=== PATIENT | female | born 1960 | race African-American/Black ===

== ENCOUNTER 2017-02-13 19:40 | Emergency (ER) | payer MEDICARE, MEDICAID ==
[~2017-02-13] VITALS: Ht 170.2 cm; Wt 121.0 kg
[~2017-02-13 19:40] MED LIST: ALPR0.2582 PO; ASPI-1035 PO; AZAT50TA18 PO; CARI350T PO; FOLI-43 PO; FURO-152 PO; HYDR-519 PO; LISI-604 PO; P20 PO; VERA240C2 PO
[2017-02-13] MEDS ORDERED: KETOROLAC 30MG/ML VIAL IV ONE (20:45)
[2017-02-13] MEDS ORDERED: METHYLPREDNISOLONE SOD SUCC 125 MG/2 ML VIAL IV ONE (20:45)
[2017-02-13] MEDS ORDERED: ACETAMINOPHEN WITH CODEINE 300/30MG TABLET PO ONE (20:45)
[2017-02-13 22:30] VITALS: BP 184/88
[2017-02-13] MEDS ORDERED: MORPHINE SULFATE 4 MG/ML CPJ (NOT FOR IM USE) IV ONE (22:30)
== END 2017-02-13 23:44 | disposition home or self-care (01) ==
LOC: ER 20:48
DX: M32.9 Systemic lupus erythematosus, unspecified (principal); M79.7 Fibromyalgia; I10 Essential (primary) hypertension; Z88.0 Allergy status to penicillin; Z79.899 Other long term (current) drug therapy; Z90.49 Acquired absence of other specified parts of digestive tract; Z90.710 Acquired absence of both cervix and uterus; Z79.82 Long term (current) use of aspirin
CPT/HCPCS: 36415; 84484; 93005; 96374; 96375; 99284; J1885; J2270; J2930

== ENCOUNTER 2017-05-10 16:10 | Emergency (ER) | payer MEDICARE, MEDICAID ==
[~2017-05-10] VITALS: Ht 162.6 cm; Wt 137.0 kg
[~2017-05-10 16:10] MED LIST changes: +ALPR0.25 PO; -ALPR0.2582 PO; -ASPI-1035 PO; +ASPI-1159 PO
[2017-05-10] MEDS ORDERED: IBUPROFEN 600MG TABLET PO ONE (20:00)
[2017-05-10 20:58] VITALS: BP 144/75
== END 2017-05-10 21:38 | disposition home or self-care (01) ==
LOC: ER 20:42
DX: S80.02XA Contusion of left knee, initial encounter (principal); W18.39XA Other fall on same level, initial encounter; Y93.89 Activity, other specified; Y92.89 Other specified places as the place of occurrence of the external cause; I10 Essential (primary) hypertension; Z79.82 Long term (current) use of aspirin; M32.9 Systemic lupus erythematosus, unspecified; M79.7 Fibromyalgia; Z88.0 Allergy status to penicillin; Z90.49 Acquired absence of other specified parts of digestive tract; Z90.710 Acquired absence of both cervix and uterus; M17.12 Unilateral primary osteoarthritis, left knee
CPT/HCPCS: 73562; 99284

== ENCOUNTER 2017-06-21 14:11 | Inpatient (IN) | payer MEDICARE, MEDICAID ==
[~2017-06-21] VITALS: Ht 170.2 cm; Wt 120.2 kg
[2017-06-21] MEDS ORDERED: ASPIRIN 81MG TABLET PO STA (14:27)
[2017-06-21] MEDS ORDERED: KETOROLAC 30MG/ML VIAL IV ONE (15:00)
[2017-06-21 15:02] LABS: CHLORIDE 108 mEq/L (98-107); HEMATOCRIT. 32.8 % (36.0-48.0); HEMOGLOBIN. 10.6 g/dL (12.0-16.0); MEAN CORPUSCULAR HEMOGLOBIN 24.8 pg (28.0-32.0); MEAN CORPUSCULAR VOLUME 76.4 fL (81.0-99.0); MEAN PLATELET VOLUME 9.2 fl (7.4-10.4); PLATELET 171 x1000/uL (130-400); RED BLOOD CELL COUNT 4.29 mill/uL (4.2-5.4); RED CELL DISTRIBUTION WIDTH 15.5 % (11.6-14.6)
[2017-06-21 15:04] LABS: PARTIAL THROMBOPLASTIN TIME 24.5 sec (23.4-31.0); PROTHROMBIN TIME 10.3 sec (9.4-11.6)
[2017-06-21 15:07] LABS: CARBON DIOXIDE 26 mEq/L (21-32)
[2017-06-21] MEDS ORDERED: POTASSIUM CHLORIDE 20MEQ TABLET SR PO NR (16:30)
[2017-06-21] MEDS ORDERED: IPRATROPIUM/ALBUTEROL 0.5-3(2.5)MG/3ML NEB HHN PRN (16:45)
[2017-06-21] MEDS ORDERED: FUROSEMIDE 40MG/4ML VIAL IVP NR (16:45)
[2017-06-21 17:26] LABS: ATYPICAL LYMPHOCYTES 3; PLATELET ESTIMATE NORMAL
[2017-06-21] MEDS ORDERED: MORPHINE SULFATE 2 MG/ML CPJ (NOT FOR IM USE) IV ONE (17:45)
[2017-06-21] MEDS ORDERED: ONDANSETRON HCL 4MG/2ML VIAL IV ONE (17:45)
[2017-06-21] MEDS ORDERED: IPRATROPIUM/ALBUTEROL 0.5-3(2.5)MG/3ML NEB INH PRN (20:45)
[2017-06-21] MEDS ORDERED: ONDANSETRON HCL 4MG/2ML VIAL IV PRN (20:45)
[2017-06-21] MEDS ORDERED: ACETAMINOPHEN 325MG TABLET PO PRN (20:45)
[2017-06-21] MEDS ORDERED: DOCUSATE SODIUM 100MG CAPSULE PO PRN (20:45)
[2017-06-21 21:00] VITALS: BP 152/120
[2017-06-21] MEDS: AMLODIPINE 2.5MG TABLET PO SCH (21:17)
[2017-06-21] MEDS: LISINOPRIL 10MG TABLET PO SCH (21:18)
[2017-06-21] MEDS: METHYLPREDNISOLONE SOD SUCC 125 MG/2 ML VIAL IV SCH (21:18)
[2017-06-21] MEDS ORDERED: POTASSIUM CHLORIDE 20MEQ/PACKET PO NR (22:30)
[2017-06-21] MEDS: ALPRAZOLAM 0.5 MG TABLET PO PRN (22:51)
[2017-06-21] MEDS: HYDROCODONE/ACETAMINOPHEN 5/325MG TABLET PO PRN (22:51)
[2017-06-21] MEDS: CLONIDINE 0.1MG TABLET PO SCH (22:52)
[2017-06-21] MEDS: DILTIAZEM HCL 90MG TABLET PO SCH (22:52)
[2017-06-22] VITALS (7 sets, daily range): BP systolic 106–140; BP diastolic 41–90
[2017-06-22] MEDS: IPRATROPIUM/ALBUTEROL 0.5-3(2.5)MG/3ML NEB HHN SCH ×4 (00:29→21:11)
[2017-06-22] MEDS: MORPHINE SULFATE 2 MG/ML CPJ (NOT FOR IM USE) IV PRN ×4 (03:06→19:45)
[2017-06-22] MEDS: DILTIAZEM HCL 90MG TABLET PO SCH ×3 (06:26→21:58)
[2017-06-22] MEDS: CLONIDINE 0.1MG TABLET PO SCH ×3 (06:26→22:03)
[2017-06-22] MEDS: METHYLPREDNISOLONE SOD SUCC 125 MG/2 ML VIAL IV SCH ×3 (06:27→20:46)
[2017-06-22 07:35] LABS: BASOPHILS % 1.2 % (0.0-2.0); HEMATOCRIT. 33.5 % (36.0-48.0); HEMOGLOBIN. 10.7 g/dL (12.0-16.0); MEAN CORPUSCULAR HEMOGLOBIN 24.8 pg (28.0-32.0); MEAN PLATELET VOLUME 10.8 fl (7.4-10.4); MONOCYTES % 1.7 % (2.0-8.0); NEUTROPHILS % 69.1 % (40.0-76.0); PLATELET 174 x1000/uL (130-400); RED BLOOD CELL COUNT 4.29 mill/uL (4.2-5.4); RED CELL DISTRIBUTION WIDTH 15.1 % (11.6-14.6)
[2017-06-22 08:02] LABS: CARBON DIOXIDE 27 mEq/L (21-32); CHLORIDE 108 mEq/L (98-107); CREATINE KINASE 55 IU/L (26-192); TROPONIN I 0.09 ng/mL (0.00-0.04)
[2017-06-22] MEDS: DOCUSATE SODIUM 100MG CAPSULE PO SCH (09:00)
[2017-06-22] MEDS: AMLODIPINE 2.5MG TABLET PO SCH ×2 (09:00→20:46)
[2017-06-22] MEDS: LISINOPRIL 10MG TABLET PO SCH ×2 (09:00→20:46)
[2017-06-22] MEDS: FUROSEMIDE 20MG TABLET PO SCH (09:43)
[2017-06-22] MEDS: OMEPRAZOLE 20MG CAPSULE EXTENDED RELEASE PO SCH (09:43)
[2017-06-22] MEDS: ASPIRIN 81MG EC TABLET PO SCH (09:43)
[2017-06-22] MEDS: ALPRAZOLAM 0.5 MG TABLET PO PRN (18:49)
[2017-06-22] MEDS ORDERED: PLAQUENIL (20:12)
[2017-06-22] MEDS: CARISOPRODOL 350 MG TABLET PO PRN (21:36)
[2017-06-22] MEDS: HYDROCODONE/ACETAMINOPHEN 5/325MG TABLET PO PRN (22:03)
[2017-06-23] VITALS: BP 139/55
[2017-06-23] MEDS: MORPHINE SULFATE 2 MG/ML CPJ (NOT FOR IM USE) IV PRN ×5 (00:28→22:00)
[2017-06-23] MEDS: IPRATROPIUM/ALBUTEROL 0.5-3(2.5)MG/3ML NEB HHN SCH ×4 (01:06→21:46)
[2017-06-23 04:00] VITALS: BP 130/55
[2017-06-23] MEDS: CARISOPRODOL 350 MG TABLET PO PRN ×3 (04:15→17:12)
[2017-06-23] MEDS: DILTIAZEM HCL 90MG TABLET PO SCH ×3 (05:09→21:57)
[2017-06-23] MEDS: METHYLPREDNISOLONE SOD SUCC 125 MG/2 ML VIAL IV SCH (05:42)
[2017-06-23] MEDS: CLONIDINE 0.1MG TABLET PO SCH ×3 (05:43→21:58)
[2017-06-23 06:08] LABS: BASOPHILS % 0.5 % (0.0-2.0); HEMOGLOBIN. 9.6 g/dL (12.0-16.0); LYMPHOCYTES % 9.4 % (20.0-50.0); MEAN CORPUSCULAR HEMOGLOBIN 24.9 pg (28.0-32.0); MEAN CORPUSCULAR VOLUME 77.5 fL (81.0-99.0); MEAN PLATELET VOLUME 10.3 fl (7.4-10.4); MONOCYTES % 4.1 % (2.0-8.0); PLATELET 169 x1000/uL (130-400); RED BLOOD CELL COUNT 3.87 mill/uL (4.2-5.4); RED CELL DISTRIBUTION WIDTH 15.2 % (11.6-14.6)
[2017-06-23] MEDS: OMEPRAZOLE 20MG CAPSULE EXTENDED RELEASE PO SCH (06:51)
[2017-06-23 06:55] LABS: CARBON DIOXIDE 21 mEq/L (21-32); CHLORIDE 112 mEq/L (98-107)
[2017-06-23 08:00] VITALS: BP 116/62
[2017-06-23] MEDS: DOCUSATE SODIUM 100MG CAPSULE PO SCH (09:00)
[2017-06-23] MEDS: ASPIRIN 81MG EC TABLET PO SCH (10:05)
[2017-06-23] MEDS: LISINOPRIL 10MG TABLET PO SCH ×2 (10:06→20:28)
[2017-06-23] MEDS: AMLODIPINE 2.5MG TABLET PO SCH ×2 (10:06→20:28)
[2017-06-23] MEDS: FUROSEMIDE 20MG TABLET PO SCH (10:06)
[2017-06-23] MEDS: HYDROCODONE/ACETAMINOPHEN 5/325MG TABLET PO PRN (10:08)
[2017-06-23 12:00] VITALS: BP 120/47
[2017-06-23 16:08] VITALS: BP 114/47
[2017-06-23] MEDS: HYDROXYCHLOROQUINE SULFATE 200MG TABLET PO SCH (17:12)
[2017-06-23] MEDS: METHYLPREDNISOLONE SOD SUCC 40 MG/ML VIAL IV SCH (17:13)
[2017-06-23 20:00] VITALS: BP 134/53
[2017-06-23] MEDS: HYDROCODONE/ACETAMINOPHEN 10/325MG TABLET PO PRN (20:30)
[2017-06-23] MEDS: HYDROCORTISONE 2.5% CREAM 20GM TOP SCH (22:00)
[2017-06-24] VITALS: BP 118/43
[2017-06-24] MEDS: CARISOPRODOL 350 MG TABLET PO PRN ×3 (00:27→21:01)
[2017-06-24] MEDS: MORPHINE SULFATE 2 MG/ML CPJ (NOT FOR IM USE) IV PRN ×5 (02:06→21:32)
[2017-06-24] MEDS: ALPRAZOLAM 0.5 MG TABLET PO PRN ×2 (02:10→21:01)
[2017-06-24 04:00] VITALS: BP 130/64
[2017-06-24] MEDS: METHYLPREDNISOLONE SOD SUCC 40 MG/ML VIAL IV SCH ×2 (05:47→18:08)
[2017-06-24] MEDS: DILTIAZEM HCL 90MG TABLET PO SCH ×3 (05:48→21:31)
[2017-06-24] MEDS: CLONIDINE 0.1MG TABLET PO SCH ×3 (05:48→21:31)
[2017-06-24] MEDS: HYDROCORTISONE 2.5% CREAM 20GM TOP SCH ×3 (05:48→21:31)
[2017-06-24 07:33] LABS: CARBON DIOXIDE 24 mEq/L (21-32); CHLORIDE 110 mEq/L (98-107)
[2017-06-24 07:57] LABS: HEMATOCRIT. 30.4 % (36.0-48.0); HEMOGLOBIN. 9.7 g/dL (12.0-16.0); MEAN CORPUSCULAR HEMOGLOBIN 24.9 pg (28.0-32.0); MEAN CORPUSCULAR VOLUME 78.1 fL (81.0-99.0); MEAN PLATELET VOLUME 10.9 fl (7.4-10.4); PLATELET 182 x1000/uL (130-400); RED BLOOD CELL COUNT 3.89 mill/uL (4.2-5.4); RED CELL DISTRIBUTION WIDTH 15.4 % (11.6-14.6)
[2017-06-24 08:00] VITALS: BP 106/61
[2017-06-24] MEDS: IPRATROPIUM/ALBUTEROL 0.5-3(2.5)MG/3ML NEB HHN SCH ×4 (08:59→21:28)
[2017-06-24] MEDS: DOCUSATE SODIUM 100MG CAPSULE PO SCH (09:00)
[2017-06-24] MEDS: ASPIRIN 81MG EC TABLET PO SCH (09:52)
[2017-06-24] MEDS: FUROSEMIDE 20MG TABLET PO SCH (09:55)
[2017-06-24] MEDS: HYDROXYCHLOROQUINE SULFATE 200MG TABLET PO SCH (09:55)
[2017-06-24] MEDS: LISINOPRIL 10MG TABLET PO SCH ×2 (09:56→21:00)
[2017-06-24] MEDS: AMLODIPINE 2.5MG TABLET PO SCH ×2 (09:56→21:01)
[2017-06-24] MEDS: FAMOTIDINE 20MG TABLET PO SCH ×2 (09:56→18:08)
[2017-06-24 11:52] VITALS: BP 125/56
[2017-06-24 15:47] VITALS: BP 125/57
[2017-06-24] MEDS: HYDROCODONE/ACETAMINOPHEN 5/325MG TABLET PO PRN (18:10)
[2017-06-25] VITALS: BP 128/55
[2017-06-25] MEDS: HYDROCODONE/ACETAMINOPHEN 10/325MG TABLET PO PRN ×2 (00:12→22:02)
[2017-06-25] MEDS: IPRATROPIUM/ALBUTEROL 0.5-3(2.5)MG/3ML NEB HHN SCH ×4 (00:51→21:24)
[2017-06-25] MEDS: MORPHINE SULFATE 2 MG/ML CPJ (NOT FOR IM USE) IV PRN ×5 (01:54→19:39)
[2017-06-25] MEDS: CARISOPRODOL 350 MG TABLET PO PRN ×3 (04:37→20:10)
[2017-06-25] MEDS: ALPRAZOLAM 0.5 MG TABLET PO PRN ×2 (04:40→14:03)
[2017-06-25 05:00] VITALS: BP 132/61
[2017-06-25] MEDS: DILTIAZEM HCL 90MG TABLET PO SCH ×3 (05:27→21:57)
[2017-06-25] MEDS: METHYLPREDNISOLONE SOD SUCC 40 MG/ML VIAL IV SCH (05:27)
[2017-06-25] MEDS: CLONIDINE 0.1MG TABLET PO SCH ×3 (05:27→21:57)
[2017-06-25] MEDS: HYDROCORTISONE 2.5% CREAM 20GM TOP SCH ×3 (05:28→21:57)
[2017-06-25 06:21] LABS: BASOPHILS % 0.2 % (0.0-2.0); HEMATOCRIT. 30.8 % (36.0-48.0); HEMOGLOBIN. 9.9 g/dL (12.0-16.0); LYMPHOCYTES % 8.6 % (20.0-50.0); MEAN CORPUSCULAR VOLUME 77.6 fL (81.0-99.0); MEAN PLATELET VOLUME 10.8 fl (7.4-10.4); MONOCYTES % 4.2 % (2.0-8.0); PLATELET 192 x1000/uL (130-400); RED BLOOD CELL COUNT 3.97 mill/uL (4.2-5.4); RED CELL DISTRIBUTION WIDTH 15.4 % (11.6-14.6)
[2017-06-25 06:53] LABS: CARBON DIOXIDE 27 mEq/L (21-32); CHLORIDE 109 mEq/L (98-107)
[2017-06-25 07:37] VITALS: BP 119/54
[2017-06-25] MEDS: FAMOTIDINE 20MG TABLET PO SCH ×2 (09:00→16:22)
[2017-06-25] MEDS: DOCUSATE SODIUM 100MG CAPSULE PO SCH (09:00)
[2017-06-25] MEDS: ASPIRIN 81MG EC TABLET PO SCH (10:00)
[2017-06-25] MEDS: HYDROXYCHLOROQUINE SULFATE 200MG TABLET PO SCH (10:00)
[2017-06-25] MEDS: FUROSEMIDE 20MG TABLET PO SCH (10:00)
[2017-06-25] MEDS: AMLODIPINE 2.5MG TABLET PO SCH ×2 (10:02→20:10)
[2017-06-25] MEDS: LISINOPRIL 10MG TABLET PO SCH ×2 (10:02→20:10)
[2017-06-25 12:00] VITALS: BP 124/52
[2017-06-25] MEDS ORDERED: GUAIFENESIN 200MG/10ML SUGAR FREE UDC PO PRN (12:00)
[2017-06-25 14:08] LABS: PLATELET ESTIMATE NORMAL
[2017-06-25 16:07] VITALS: BP 117/50
[2017-06-25 20:00] VITALS: BP 119/56
[2017-06-26] VITALS: BP 117/51
[2017-06-26] MEDS: MORPHINE SULFATE 2 MG/ML CPJ (NOT FOR IM USE) IV PRN ×4 (00:04→13:54)
[2017-06-26] MEDS: ALPRAZOLAM 0.5 MG TABLET PO PRN (00:04)
[2017-06-26] MEDS: IPRATROPIUM/ALBUTEROL 0.5-3(2.5)MG/3ML NEB HHN SCH ×4 (01:11→20:58)
[2017-06-26] MEDS: CARISOPRODOL 350 MG TABLET PO PRN ×2 (03:02→20:42)
[2017-06-26] MEDS: CLONIDINE 0.1MG TABLET PO SCH ×3 (05:09→22:28)
[2017-06-26] MEDS: DILTIAZEM HCL 90MG TABLET PO SCH ×3 (05:09→22:28)
[2017-06-26] MEDS: HYDROCORTISONE 2.5% CREAM 20GM TOP SCH ×3 (05:09→22:27)
[2017-06-26 08:00] VITALS: BP 110/53
[2017-06-26] MEDS: FAMOTIDINE 20MG TABLET PO SCH ×2 (09:00→16:37)
[2017-06-26] MEDS: DOCUSATE SODIUM 100MG CAPSULE PO SCH (09:00)
[2017-06-26] MEDS: LISINOPRIL 10MG TABLET PO SCH ×2 (09:20→20:42)
[2017-06-26] MEDS: ASPIRIN 81MG EC TABLET PO SCH (09:21)
[2017-06-26] MEDS: PREDNISONE 20MG TABLET PO SCH (09:21)
[2017-06-26] MEDS: AMLODIPINE 2.5MG TABLET PO SCH ×2 (09:21→20:42)
[2017-06-26] MEDS: FUROSEMIDE 20MG TABLET PO SCH (09:21)
[2017-06-26] MEDS: HYDROXYCHLOROQUINE SULFATE 200MG TABLET PO SCH (09:22)
[2017-06-26 12:00] VITALS: BP 120/48
[2017-06-26 16:00] VITALS: BP 119/51
[2017-06-26 20:00] VITALS: BP 121/47
[2017-06-26] MEDS: HYDROCODONE/ACETAMINOPHEN 5/325MG TABLET PO PRN (20:42)
[2017-06-27] VITALS: BP 124/52
[2017-06-27] MEDS: IPRATROPIUM/ALBUTEROL 0.5-3(2.5)MG/3ML NEB HHN SCH (02:52)
[2017-06-27 04:00] VITALS: BP 130/63
[2017-06-27] MEDS: HYDROCORTISONE 2.5% CREAM 20GM TOP SCH (05:39)
[2017-06-27] MEDS: CLONIDINE 0.1MG TABLET PO SCH (05:39)
[2017-06-27] MEDS: DILTIAZEM HCL 90MG TABLET PO SCH (05:39)
[2017-06-27 07:48] VITALS: BP 112/46
[2017-06-27] MEDS: FUROSEMIDE 20MG TABLET PO SCH (08:57)
[2017-06-27] MEDS: HYDROXYCHLOROQUINE SULFATE 200MG TABLET PO SCH (08:57)
[2017-06-27] MEDS: FAMOTIDINE 20MG TABLET PO SCH (08:57)
[2017-06-27] MEDS: AMLODIPINE 2.5MG TABLET PO SCH (08:58)
[2017-06-27] MEDS: CARISOPRODOL 350 MG TABLET PO PRN (08:58)
[2017-06-27] MEDS: PREDNISONE 20MG TABLET PO SCH (08:58)
[2017-06-27] MEDS: ASPIRIN 81MG EC TABLET PO SCH (08:58)
[2017-06-27] MEDS: HYDROCODONE/ACETAMINOPHEN 5/325MG TABLET PO PRN (08:59)
[2017-06-27] MEDS: DOCUSATE SODIUM 100MG CAPSULE PO SCH (09:00)
[2017-06-27 11:06] VITALS: BP 122/70
== END 2017-06-27 13:47 | disposition home health service (06) | DRG 546 ==
LOC: ER 14:49 → 8WST 15:53 → EDBEDREQ 15:56 → EDBEDREQTM 15:56 → EDBEDREQ 16:28 → ENRESERV 18:58
PROVIDERS: ADMIT Family Medicine Adult Medicine; ATTEND Family Medicine Adult Medicine
DX: M32.9 Systemic lupus erythematosus, unspecified (principal); I42.9 Cardiomyopathy, unspecified; G95.9 Disease of spinal cord, unspecified; I11.9 Hypertensive heart disease without heart failure; Z68.41 Body mass index [BMI] 40.0-44.9, adult; M41.9 Scoliosis, unspecified; M94.0 Chondrocostal junction syndrome [Tietze]; D63.8 Anemia in other chronic diseases classified elsewhere; E87.6 Hypokalemia; I25.10 Atherosclerotic heart disease of native coronary artery without angina pectoris; G89.4 Chronic pain syndrome; J45.909 Unspecified asthma, uncomplicated; G47.33 Obstructive sleep apnea (adult) (pediatric); E66.09 Other obesity due to excess calories; D72.819 Decreased white blood cell count, unspecified; F41.9 Anxiety disorder, unspecified; M54.5 Low back pain; K21.9 Gastro-esophageal reflux disease without esophagitis; R15.9 Full incontinence of feces; M54.12 Radiculopathy, cervical region; M48.06 Spinal stenosis, lumbar region; M79.7 Fibromyalgia; R32 Unspecified urinary incontinence; Z86.73 Personal history of transient ischemic attack (TIA), and cerebral infarction without residual deficits; Z90.710 Acquired absence of both cervix and uterus; Z98.1 Arthrodesis status; Z88.0 Allergy status to penicillin
CPT/HCPCS: 36415; 71010; 72141; 72146; 72158; 80048; 80053; 82550; 83036; 83735; 84484; 85025; 85610; 85730; 87015; 87045; 87427; 87449; 93005; 93306; 94640; 96374; 96375; 97162; 97165; 99285; C1893; J1885; J1940; J2270; J2405; J2920; J2930; J7512; J7620

== ENCOUNTER 2017-11-18 23:14 | Emergency (ER) | payer MEDICARE, MEDICAID ==
[~2017-11-18] VITALS: Ht 170.2 cm; Wt 116.0 kg
[~2017-11-18 23:14] MED LIST changes: -HYDR-519 PO; -LISI-604 PO; +PLAQUENIL; -VERA240C2 PO
[2017-11-19] MEDS ORDERED: SODIUM CHLORIDE 0.9% 1,000 ML IV ONE (06:13)
[2017-11-19] MEDS ORDERED: ONDANSETRON HCL 4MG/2ML VIAL IV ONE (06:15)
[2017-11-19 06:30] LABS: BASOPHILS % 0.6 % (0.0-2.0); EOSINOPHILS % 0.1 % (0.0-5.0); HEMATOCRIT. 33.6 % (36.0-48.0); HEMOGLOBIN. 10.8 g/dL (12.0-16.0); LYMPHOCYTES % 29.8 % (20.0-50.0); MEAN CORPUSCULAR HEMOGLOBIN 25.2 pg (28.0-32.0); MEAN CORPUSCULAR VOLUME 78.4 fL (81.0-99.0); MEAN PLATELET VOLUME 9.3 fl (7.4-10.4); MONOCYTES % 9.6 % (2.0-8.0); NEUTROPHILS % 59.9 % (40.0-76.0); PLATELET 171 x1000/uL (130-400); RED BLOOD CELL COUNT 4.28 mill/uL (4.2-5.4); RED CELL DISTRIBUTION WIDTH 14.9 % (11.6-14.6)
[2017-11-19] MEDS ORDERED: ACETAMINOPHEN 650MG/20.3ML UDC PO ONE (06:45)
[2017-11-19 06:51] LABS: CARBON DIOXIDE 29 mEq/L (21-32); CHLORIDE 110 mEq/L (98-107)
[2017-11-19 11:20] VITALS: BP 178/96
== END 2017-11-19 11:33 | disposition home or self-care (01) ==
LOC: ER 23:14
DX: B34.9 Viral infection, unspecified (principal); R05 Cough; R51 Headache; M32.9 Systemic lupus erythematosus, unspecified; I10 Essential (primary) hypertension; E66.9 Obesity, unspecified; Z88.0 Allergy status to penicillin; Z79.82 Long term (current) use of aspirin; Z90.49 Acquired absence of other specified parts of digestive tract; Z90.710 Acquired absence of both cervix and uterus; Z79.899 Other long term (current) drug therapy
CPT/HCPCS: 36415; 71045; 80048; 85025; 87804; 96361; 96374; 99285; J2405; J7030

== ENCOUNTER 2019-12-06 13:33 | Inpatient (IN) | payer MEDICARE, MEDICAID ==
[~2019-12-06] VITALS: Ht 175.3 cm; Wt 133.9 kg
[~2019-12-06 13:33] MED LIST changes: +ASPI-1158 PO; -ASPI-1159 PO; -CARI350T PO; +CARI350T28 PO; -PLAQUENIL
[2019-12-06] MEDS ORDERED: SODIUM CHLORIDE 0.9% 1,000 ML IV ONE (15:18)
[2019-12-06 15:25] LABS: BASOPHILS % 0.8 % (0.0-2.0); EOSINOPHILS % 0.1 % (0.0-5.0); HEMATOCRIT. 29.8 % (36.0-48.0); HEMOGLOBIN. 9.9 g/dL (12.0-16.0); LYMPHOCYTES % 41.5 % (20.0-50.0); MEAN CORPUSCULAR HEMOGLOBIN 26.9 pg (28.0-32.0); MEAN CORPUSCULAR VOLUME 81.3 fL (81.0-99.0); MEAN PLATELET VOLUME 9.6 fl (7.4-10.4); MONOCYTES % 13.1 % (2.0-8.0); NEUTROPHILS % 44.5 % (40.0-76.0); PLATELET 167 x1000/uL (130-400); RED BLOOD CELL COUNT 3.66 mill/uL (4.2-5.4); RED CELL DISTRIBUTION WIDTH 15.8 % (11.6-14.6)
[2019-12-06 15:29] LABS: CHLORIDE 113 mEq/L (98-107)
[2019-12-06 15:38] LABS: CREATINE KINASE 424 IU/L (26-192)
[2019-12-06 15:41] LABS: CREATINE KINASE MB FRACTION 7.8 ng/mL (0.5-3.6)
[2019-12-06 15:43] LABS: D-DIMER 2.57 mg/L FEU (<0.50); INR 0.9
[2019-12-06] MEDS ORDERED: ASPIRIN 325MG EC TABLET PO ONE (17:15)
[2019-12-06] MEDS ORDERED: ENOXAPARIN 120MG/0.8ML SYR SUBCUT ONE (17:45)
[2019-12-06] MEDS ORDERED: ONDANSETRON HCL 4MG/2ML INJ IV PRN (18:00)
[2019-12-06] MEDS ORDERED: ACETAMINOPHEN 325MG TABLET PO PRN (18:00)
[2019-12-06] MEDS ORDERED: NITROGLYCERIN 0.4MG TABLET SL SL PRN (18:00)
[2019-12-06 20:31] LABS: CLARITY URINE CLEAR (CLEAR); COLOR URINE YELLOW (YELLOW); KETONES URINE NEGATIVE (NEGATIVE); LEUKOCYTE ESTERASE URINE TRACE (NEGATIVE); NITRITE URINE POSITIVE (NEGATIVE); OCCULT BLOOD URINE NEGATIVE (NEGATIVE); PROTEIN URINE TRACE (NEGATIVE); SPECIFIC GRAVITY URINE 1.013 (1.005-1.030); UROBILINOGEN URINE 0.2 E.U./dL (0.2-1.0)
[2019-12-07] MEDS ORDERED: HYDROCODONE/ACETAMINOPHEN 10/325MG TABLET PO SCH (01:30)
[2019-12-07 04:42] LABS: HEMATOCRIT. 27.4 % (36.0-48.0); LYMPHOCYTES % 41.6 % (20.0-50.0); MEAN CORPUSCULAR HEMOGLOBIN 27.3 pg (28.0-32.0); MEAN CORPUSCULAR VOLUME 82.6 fL (81.0-99.0); MEAN PLATELET VOLUME 10.4 fl (7.4-10.4); MONOCYTES % 11.7 % (2.0-8.0); NEUTROPHILS % 45.7 % (40.0-76.0); PLATELET 155 x1000/uL (130-400); RED BLOOD CELL COUNT 3.31 mill/uL (4.2-5.4); RED CELL DISTRIBUTION WIDTH 15.7 % (11.6-14.6)
[2019-12-07 04:48] LABS: CHLORIDE 114 mEq/L (98-107)
[2019-12-07 04:55] LABS: LDL CHOLESTEROL 65 mg/dL (5-100)
[2019-12-07 04:56] LABS: HDL CHOLESTEROL 47 mg/dL (40-59)
[2019-12-07] MEDS ORDERED: IOHEXOL-350 100 ML BOTTLE ONE (05:25)
[2019-12-07] MEDS ORDERED: ATORVASTATIN CALCIUM 40MG TABLET PO ONE (09:00)
[2019-12-07] MEDS: HYDROCODONE/ACETAMINOPHEN 10/325MG TABLET PO PRN (14:08)
[2019-12-07] MEDS: ASPIRIN 81MG EC TABLET PO SCH ×2 (15:55→15:57)
[2019-12-07] MEDS: FOLIC ACID 1MG TABLET PO SCH (15:55)
[2019-12-07] MEDS: ENOXAPARIN 40MG/0.4ML SYR SUBCUT SCH ×2 (15:57→22:58)
[2019-12-07] MEDS ORDERED: AZATHIOPRINE 50MG TABLET PO NR (17:00)
[2019-12-07] MEDS: CARISOPRODOL 350 MG TABLET PO PRN (17:39)
[2019-12-07] MEDS: PREDNISONE 20MG TABLET PO SCH (17:39)
[2019-12-07] MEDS: ALPRAZOLAM 0.25 MG TABLET PO SCH (22:57)
[2019-12-07 23:00] VITALS: BP 146/55
[2019-12-08] VITALS (17 sets, daily range): BP systolic 141–183; BP diastolic 55–103
[2019-12-08] MEDS: HYDROCODONE/ACETAMINOPHEN 10/325MG TABLET PO PRN ×3 (05:26→21:52)
[2019-12-08 06:31] LABS: BASOPHILS % 0.9 % (0.0-2.0); EOSINOPHILS % 0.2 % (0.0-5.0); HEMATOCRIT. 28.2 % (36.0-48.0); HEMOGLOBIN. 9.3 g/dL (12.0-16.0); LYMPHOCYTES % 44.5 % (20.0-50.0); MEAN CORPUSCULAR VOLUME 81.9 fL (81.0-99.0); MEAN PLATELET VOLUME 10.1 fl (7.4-10.4); MONOCYTES % 6.3 % (2.0-8.0); NEUTROPHILS % 48.1 % (40.0-76.0); PLATELET 164 x1000/uL (130-400); RED BLOOD CELL COUNT 3.45 mill/uL (4.2-5.4); RED CELL DISTRIBUTION WIDTH 15.7 % (11.6-14.6)
[2019-12-08 06:35] LABS: CHLORIDE 113 mEq/L (98-107)
[2019-12-08] MEDS ORDERED: REGADENOSON 0.4 MG/5 ML IV ONE (06:45)
[2019-12-08] MEDS: ASPIRIN 81MG EC TABLET PO SCH ×2 (09:00→09:37)
[2019-12-08] MEDS: PREDNISONE 20MG TABLET PO SCH ×2 (09:37→16:53)
[2019-12-08] MEDS: AZATHIOPRINE 50MG TABLET PO SCH ×2 (09:37→16:53)
[2019-12-08] MEDS: FOLIC ACID 1MG TABLET PO SCH (09:37)
[2019-12-08] MEDS: ENOXAPARIN 40MG/0.4ML SYR SUBCUT SCH ×2 (11:13→23:17)
[2019-12-08] MEDS ORDERED: LORAZEPAM 0.5MG TABLET PO NR (13:15)
[2019-12-08] MEDS: CLONIDINE 0.1MG TABLET PO PRN (14:22)
[2019-12-08 16:26] LABS: *AMPHETAMINES SCREEN URINE NEGATIVE (NEGATIVE); *BARBITURATES SCREEN URINE NEGATIVE (NEGATIVE); *BENZODIAZEPINES SCREEN URINE NEGATIVE (NEGATIVE); *COCAINE SCREEN URINE NEGATIVE (NEGATIVE); METHADONE URINE SCREEN NEGATIVE (NEGATIVE); OPIATES URINE SCREEN PRESUMTIVE POSITIVE (NEGATIVE)
[2019-12-08 16:27] LABS: CANNABINOID URINE SCREEN NEGATIVE (NEGATIVE); PHENCYCLIDINE URINE SCREEN NEGATIVE (NEGATIVE)
[2019-12-08] MEDS: NITROFURANTOIN 100MG M/M CAPSULE PO SCH (21:32)
[2019-12-08] MEDS: ALPRAZOLAM 0.25 MG TABLET PO SCH (21:33)
[2019-12-09] VITALS (12 sets, daily range): BP systolic 99–179; BP diastolic 55–94
[2019-12-09] MEDS: HYDROCODONE/ACETAMINOPHEN 10/325MG TABLET PO PRN ×2 (06:01→16:54)
[2019-12-09] MEDS ORDERED: REGADENOSON 0.4 MG/5 ML IV ONE (06:15)
[2019-12-09 06:53] LABS: BASOPHILS % 0.9 % (0.0-2.0); HEMATOCRIT. 28.4 % (36.0-48.0); HEMOGLOBIN. 9.2 g/dL (12.0-16.0); MEAN CORPUSCULAR HEMOGLOBIN 27.2 pg (28.0-32.0); MEAN CORPUSCULAR VOLUME 83.7 fL (81.0-99.0); MEAN PLATELET VOLUME 11.3 fl (7.4-10.4); MONOCYTES % 10.3 % (2.0-8.0); NEUTROPHILS % 58.8 % (40.0-76.0); PLATELET 171 x1000/uL (130-400); RED CELL DISTRIBUTION WIDTH 15.5 % (11.6-14.6)
[2019-12-09 07:21] LABS: CHLORIDE 111 mEq/L (98-107)
[2019-12-09] MEDS: ASPIRIN 81MG EC TABLET PO SCH (09:18)
[2019-12-09] MEDS: AZATHIOPRINE 50MG TABLET PO SCH ×2 (09:18→16:53)
[2019-12-09] MEDS: PREDNISONE 20MG TABLET PO SCH ×2 (09:19→16:53)
[2019-12-09] MEDS: FOLIC ACID 1MG TABLET PO SCH (09:19)
[2019-12-09] MEDS: NITROFURANTOIN 100MG M/M CAPSULE PO SCH ×2 (09:19→21:06)
[2019-12-09] MEDS: ENOXAPARIN 40MG/0.4ML SYR SUBCUT SCH ×2 (11:28→21:06)
[2019-12-09] MEDS: CLONIDINE 0.1MG TABLET PO PRN (16:53)
[2019-12-09] MEDS: ALPRAZOLAM 0.25 MG TABLET PO SCH (21:05)
[2019-12-09] MEDS: HYDRALAZINE HCL 50MG TABLET PO PRN (21:06)
[2019-12-10] VITALS (13 sets, daily range): BP systolic 136–189; BP diastolic 53–97
[2019-12-10] MEDS: CLONIDINE 0.1MG TABLET PO PRN (02:57)
[2019-12-10] MEDS: HYDROCODONE/ACETAMINOPHEN 10/325MG TABLET PO PRN ×2 (06:49→16:11)
[2019-12-10 07:33] LABS: BASOPHILS % 1.2 % (0.0-2.0); HEMATOCRIT. 31.3 % (36.0-48.0); LYMPHOCYTES % 35.3 % (20.0-50.0); MEAN CORPUSCULAR HEMOGLOBIN 26.3 pg (28.0-32.0); MEAN CORPUSCULAR VOLUME 82.8 fL (81.0-99.0); MEAN PLATELET VOLUME 11.1 fl (7.4-10.4); MONOCYTES % 12.2 % (2.0-8.0); NEUTROPHILS % 51.3 % (40.0-76.0); PLATELET 203 x1000/uL (130-400); RED BLOOD CELL COUNT 3.78 mill/uL (4.2-5.4); RED CELL DISTRIBUTION WIDTH 15.8 % (11.6-14.6)
[2019-12-10 08:07] LABS: CHLORIDE 108 mEq/L (98-107)
[2019-12-10] MEDS ORDERED: AMLODIPINE 5MG TABLET PO SCH ×2 (08:45→21:00)
[2019-12-10] MEDS ORDERED: REGADENOSON 0.4 MG/5 ML IV ONE (10:26)
[2019-12-10] MEDS: FOLIC ACID 1MG TABLET PO SCH (12:06)
[2019-12-10] MEDS: AZATHIOPRINE 50MG TABLET PO SCH ×2 (12:07→15:56)
[2019-12-10] MEDS: ASPIRIN 81MG EC TABLET PO SCH (12:07)
[2019-12-10] MEDS: CARISOPRODOL 350 MG TABLET PO PRN (12:07)
[2019-12-10] MEDS: ENOXAPARIN 40MG/0.4ML SYR SUBCUT SCH (12:08)
[2019-12-10] MEDS: PREDNISONE 20MG TABLET PO SCH ×2 (12:10→16:00)
[2019-12-10] MEDS: NITROFURANTOIN 100MG M/M CAPSULE PO SCH (12:14)
[2019-12-10] MEDS ORDERED: MECL-159 MT (12:56)
[2019-12-10] MEDS ORDERED: CLON0.2T MT (12:56)
[2019-12-10] MEDS: HYDRALAZINE HCL 50MG TABLET PO PRN (13:23)
[2019-12-10] MEDS: CLONIDINE 0.2MG TABLET PO SCH ×2 (14:00→17:58)
[2019-12-10] MEDS ORDERED: LOSARTAN POTASSIUM 25 MG TABLET PO SCH (15:00)
[2019-12-10] MEDS ORDERED: MECLIZINE 25MG TABLET PO PRN (15:00)
[2019-12-11] MEDS ORDERED: AMLODIPINE 5MG TABLET PO SCH (09:00)
== END 2019-12-10 18:23 | disposition home or self-care (01) | DRG 281 ==
LOC: ER 13:33 → EDBEDREQ 15:22 → EDBEDREQTM 15:22 → 3WST 17:38 → EDBEDREQ 18:00 → EDBEDREQSVC 18:00 → EDBEDREQTM 18:00 → EDBEDREQ 19:38 → ENRESERV 12-07 20:19
PROVIDERS: ADMIT Family Medicine Adult Medicine; ATTEND Family Medicine Adult Medicine
PROC: 4A00X4Z Measurement of Central Nervous Electrical Activity, External Approach (ICD-10-PCS; principal; 2019-12-10)
DX: I21.4 Non-ST elevation (NSTEMI) myocardial infarction (principal); D61.818 Other pancytopenia; N39.0 Urinary tract infection, site not specified; Z68.41 Body mass index [BMI] 40.0-44.9, adult; E66.09 Other obesity due to excess calories; G47.33 Obstructive sleep apnea (adult) (pediatric); M32.9 Systemic lupus erythematosus, unspecified; I10 Essential (primary) hypertension; I25.10 Atherosclerotic heart disease of native coronary artery without angina pectoris; M79.7 Fibromyalgia; G89.29 Other chronic pain; K21.9 Gastro-esophageal reflux disease without esophagitis; Z82.49 Family history of ischemic heart disease and other diseases of the circulatory system; Z79.899 Other long term (current) drug therapy; Z79.52 Long term (current) use of systemic steroids; Z82.3 Family history of stroke; Z90.710 Acquired absence of both cervix and uterus; Z88.0 Allergy status to penicillin; Z79.01 Long term (current) use of anticoagulants; Z79.82 Long term (current) use of aspirin; Z90.49 Acquired absence of other specified parts of digestive tract; Z88.8 Allergy status to other drugs, medicaments and biological substances; R79.89 Other specified abnormal findings of blood chemistry
CPT/HCPCS: 36415; 70544; 70553; 71045; 71275; 78452; 80048; 80053; 80061; 80305; 80320; 81003; 82550; 82553; 83036; 83735; 83880; 84443; 84484; 85025; 85379; 93005; 93017; 93306; 93880; 96360; 96361; 96372; 99285; A9500; J1650; J2785; J7030; J7500; J7512; J8597; Q9967; G0480

== ENCOUNTER 2021-02-17 11:52 | Inpatient (IN) | payer MEDICARE, MEDICAID ==
[~2021-02-17] VITALS: Ht 170.2 cm; Wt 108.4 kg
[~2021-02-17 11:52] MED LIST changes: -ASPI-1158 PO; +ASPI-1406 PO; +CLON0.2T MT; +MECL-159 MT
[2021-02-17] MEDS ORDERED: ASPIRIN 81MG TABLET PO ONE (12:30)
[2021-02-17] MEDS ORDERED: MORPHINE SULFATE 2 MG/ML CPJ (NOT FOR IM USE) IV ONE (12:30)
[2021-02-17 12:51] LABS: BASOPHILS % 1.4 % (0.0-2.0); HEMATOCRIT. 28.5 % (36.0-48.0); HEMOGLOBIN. 9.5 g/dL (12.0-16.0); LYMPHOCYTES % 52.1 % (20.0-50.0); MEAN CORPUSCULAR VOLUME 87.1 fL (81.0-99.0); MEAN PLATELET VOLUME 10.1 fl (7.4-10.4); MONOCYTES % 8.4 % (2.0-8.0); NEUTROPHILS % 38.1 % (40.0-76.0); PLATELET 136 x1000/uL (130-400); RED BLOOD CELL COUNT 3.27 mill/uL (4.2-5.4); RED CELL DISTRIBUTION WIDTH 16.3 % (11.6-14.6)
[2021-02-17 12:57] LABS: CHLORIDE 108 mEq/L (98-107)
[2021-02-17] MEDS: NITROGLYCERIN 0.4MG TABLET SL SL PRN ×2 (14:00→14:02)
[2021-02-17] MEDS ORDERED: MORPHINE SULFATE 2 MG/ML CPJ (NOT FOR IM USE) IV SCH (14:15)
[2021-02-17 15:07] LABS: D-DIMER 2.08 mg/L FEU (<0.50); PROTHROMBIN TIME 10.3 sec (9.6-11.0)
[2021-02-17] MEDS ORDERED: MORPHINE SULFATE 2 MG/ML CPJ (NOT FOR IM USE) IV NR (16:45)
[2021-02-17] MEDS ORDERED: ONDANSETRON HCL 4MG/2ML INJ IV PRN (16:45)
[2021-02-17] MEDS ORDERED: ACETAMINOPHEN 325MG TABLET PO PRN (16:45)
[2021-02-17 18:03] LABS: PHOSPHORUS 2.7 mg/dL (2.5-4.9)
[2021-02-17 18:19] LABS: CLARITY URINE CLEAR (CLEAR); COLOR URINE YELLOW (YELLOW); KETONES URINE NEGATIVE (NEGATIVE); LEUKOCYTE ESTERASE URINE NEGATIVE (NEGATIVE); NITRITE URINE NEGATIVE (NEGATIVE); OCCULT BLOOD URINE NEGATIVE (NEGATIVE); PH URINE 5.5 (4.5-8.0); PROTEIN URINE 3+ (NEGATIVE); SPECIFIC GRAVITY URINE 1.014 (1.005-1.030)
[2021-02-17] MEDS: KETOROLAC 15MG/ML VIAL IV PRN (18:27)
[2021-02-17 18:29] LABS: *AMPHETAMINES SCREEN URINE NEGATIVE (NEGATIVE); *BARBITURATES SCREEN URINE NEGATIVE (NEGATIVE); *BENZODIAZEPINES SCREEN URINE NEGATIVE (NEGATIVE); *COCAINE SCREEN URINE NEGATIVE (NEGATIVE); METHADONE URINE SCREEN NEGATIVE (NEGATIVE)
[2021-02-17 18:30] LABS: CANNABINOID URINE SCREEN NEGATIVE (NEGATIVE); OPIATES URINE SCREEN PRESUMTIVE POSITIVE (NEGATIVE); PHENCYCLIDINE URINE SCREEN NEGATIVE (NEGATIVE)
[2021-02-17] MEDS ORDERED: IOHEXOL-350 100 ML BOTTLE ONE (20:16)
[2021-02-17 22:30] VITALS: BP 149/69
[2021-02-17 22:35] VITALS: BP 149/69
[2021-02-17] MEDS: ENOXAPARIN 30MG/0.3ML SYR SUBCUT SCH (22:56)
[2021-02-17] MEDS: METOPROLOL TARTRATE 25MG TABLET PO SCH (22:57)
[2021-02-17] MEDS: ATORVASTATIN CALCIUM 40MG TABLET PO SCH (22:57)
[2021-02-17] MEDS: LOSARTAN POTASSIUM 25 MG TABLET PO SCH (22:57)
[2021-02-18] VITALS: BP 118/70
[2021-02-18] MEDS: KETOROLAC 15MG/ML VIAL IV PRN ×4 (00:46→21:58)
[2021-02-18 04:00] VITALS: BP 140/66
[2021-02-18 07:03] LABS: BASOPHILS % 1.2 % (0.0-2.0); HEMATOCRIT. 26.8 % (36.0-48.0); HEMOGLOBIN. 8.8 g/dL (12.0-16.0); LYMPHOCYTES % 58.1 % (20.0-50.0); MEAN CORPUSCULAR HEMOGLOBIN 28.2 pg (28.0-32.0); MEAN CORPUSCULAR VOLUME 85.5 fL (81.0-99.0); MEAN PLATELET VOLUME 10.8 fl (7.4-10.4); MONOCYTES % 10.4 % (2.0-8.0); NEUTROPHILS % 30.3 % (40.0-76.0); PLATELET 114 x1000/uL (130-400); RED BLOOD CELL COUNT 3.13 mill/uL (4.2-5.4); RED CELL DISTRIBUTION WIDTH 16.4 % (11.6-14.6)
[2021-02-18 08:00] VITALS: BP 145/65
[2021-02-18] MEDS: ENOXAPARIN 30MG/0.3ML SYR SUBCUT SCH ×2 (09:20→21:03)
[2021-02-18] MEDS: METOPROLOL TARTRATE 25MG TABLET PO SCH ×2 (09:21→21:03)
[2021-02-18] MEDS: ASPIRIN 81MG TABLET PO SCH (09:21)
[2021-02-18] MEDS ORDERED: REGADENOSON 0.4 MG/5 ML IV SCH (09:30)
[2021-02-18] MEDS ORDERED: MAGNESIUM 1 G PREMIX 100 ML IV SCH (11:00)
[2021-02-18 12:00] VITALS: BP 170/86
[2021-02-18] MEDS ORDERED: REGADENOSON 0.4 MG/5 ML IV ONE (14:10)
[2021-02-18] MEDS: LOSARTAN POTASSIUM 25 MG TABLET PO SCH (15:29)
[2021-02-18] MEDS ORDERED: CLONIDINE 0.1MG TABLET PO NR (15:30)
[2021-02-18 16:00] VITALS: BP 170/78
[2021-02-18] MEDS ORDERED: LOSARTAN POTASSIUM 50 MG TABLET PO NR (18:30)
[2021-02-18 20:00] VITALS: BP 143/68
[2021-02-18] MEDS: ATORVASTATIN CALCIUM 40MG TABLET PO SCH (21:03)
[2021-02-19 03:40] VITALS: BP 125/64
[2021-02-19] MEDS: KETOROLAC 15MG/ML VIAL IV PRN ×2 (03:45→13:00)
[2021-02-19 08:00] VITALS: BP 141/71
[2021-02-19] MEDS: ENOXAPARIN 30MG/0.3ML SYR SUBCUT SCH (08:44)
[2021-02-19] MEDS: ASPIRIN 81MG TABLET PO SCH (08:44)
[2021-02-19] MEDS: METOPROLOL TARTRATE 25MG TABLET PO SCH (08:45)
[2021-02-19] MEDS ORDERED: LOSARTAN POTASSIUM 25 MG TABLET PO SCH (09:00)
[2021-02-19 12:00] VITALS: BP 126/69
[2021-02-19 12:44] LABS: HEMATOCRIT. 27.1 % (36.0-48.0); MEAN CORPUSCULAR HEMOGLOBIN 29.1 pg (28.0-32.0); MEAN CORPUSCULAR VOLUME 87.8 fL (81.0-99.0); MEAN PLATELET VOLUME 11.6 fl (7.4-10.4); PLATELET 129 x1000/uL (130-400); RED BLOOD CELL COUNT 3.08 mill/uL (4.2-5.4); RED CELL DISTRIBUTION WIDTH 16.3 % (11.6-14.6)
[2021-02-19] MEDS: FUROSEMIDE 40MG TABLET PO SCH ×2 (13:15→14:44)
[2021-02-19 15:55] VITALS: BP 151/62
[2021-02-19 16:36] VITALS: BP 141/62
[2021-02-19 16:50] LABS: PLATELET ESTIMATE DECREASED
== END 2021-02-19 19:05 | disposition home or self-care (01) | DRG 206 ==
LOC: ER 11:52 → EDBEDREQ 13:32 → EDBEDREQTM 13:32 → 8WST 15:19 → EDBEDREQTM 15:31 → EDBEDREQ 15:31 → ENRESERV 20:36
PROVIDERS: ADMIT Family Medicine Adult Medicine; ATTEND Family Medicine Adult Medicine
DX: M94.0 Chondrocostal junction syndrome [Tietze] (principal); E44.1 Mild protein-calorie malnutrition; J98.11 Atelectasis; D64.9 Anemia, unspecified; D70.9 Neutropenia, unspecified; E66.01 Morbid (severe) obesity due to excess calories; E87.8 Other disorders of electrolyte and fluid balance, not elsewhere classified; I10 Essential (primary) hypertension; I25.10 Atherosclerotic heart disease of native coronary artery without angina pectoris; M32.9 Systemic lupus erythematosus, unspecified; Z20.822 Contact with and (suspected) exposure to COVID-19; M79.7 Fibromyalgia; Z79.82 Long term (current) use of aspirin; Z90.710 Acquired absence of both cervix and uterus; Z95.0 Presence of cardiac pacemaker; Z90.49 Acquired absence of other specified parts of digestive tract; Z79.899 Other long term (current) drug therapy; Z71.3 Dietary counseling and surveillance; Z88.0 Allergy status to penicillin; Z98.1 Arthrodesis status; Z68.37 Body mass index [BMI] 37.0-37.9, adult
CPT/HCPCS: 36415; 71045; 71275; 78452; 80048; 80053; 80305; 81003; 83735; 83880; 84100; 84484; 85025; 85379; 87426; 93005; 93017; 93306; 93970; 99285; A9500; J1650; J1885; J2270; J2785; J3475; J7040; Q9967

== ENCOUNTER 2022-06-22 16:00 | Inpatient (IN) | payer MEDICARE, MEDICAID ==
[~2022-06-22] VITALS: Ht 152.4 cm; Wt 88.9 kg
[2022-06-22 17:05] LABS: BASOPHILS % 0.7 % (0.0-2.0); EOSINOPHILS % 3.7 % (0.0-5.0); HEMATOCRIT. 29.8 % (36.0-48.0); HEMOGLOBIN. 9.5 g/dL (12.0-16.0); LYMPHOCYTES % 30.2 % (20.0-50.0); MEAN CORPUSCULAR HEMOGLOBIN 24.6 pg (28.0-32.0); MEAN CORPUSCULAR VOLUME 77.3 fL (81.0-99.0); MEAN PLATELET VOLUME 9.6 fl (7.4-10.4); MONOCYTES % 12.3 % (2.0-8.0); NEUTROPHILS % 53.1 % (40.0-76.0); PLATELET 111 x1000/uL (130-400); RED BLOOD CELL COUNT 3.86 mill/uL (4.2-5.4)
[2022-06-22 17:06] LABS: CHLORIDE 110 mEq/L (98-107)
[2022-06-22 20:00] VITALS: BP 137/71
[2022-06-22 23:13] VITALS: BP 137/71
[2022-06-23] VITALS: BP 182/73
[2022-06-23] MEDS ORDERED: NALOXONE HCL 0.4MG/ML VIAL IV PRN (01:00)
[2022-06-23] MEDS: CLONIDINE 0.1MG TABLET PO PRN (01:03)
[2022-06-23] MEDS: HYDROCODONE/ACETAMINOPHEN 10/325MG TABLET PO PRN ×3 (01:03→16:50)
[2022-06-23 04:00] VITALS: BP 160/64
[2022-06-23 06:35] LABS: BASOPHILS % 0.7 % (0.0-2.0); EOSINOPHILS % 4.5 % (0.0-5.0); HEMATOCRIT. 28.5 % (36.0-48.0); LYMPHOCYTES % 25.2 % (20.0-50.0); MEAN CORPUSCULAR HEMOGLOBIN 24.6 pg (28.0-32.0); MEAN CORPUSCULAR VOLUME 77.9 fL (81.0-99.0); NEUTROPHILS % 55.6 % (40.0-76.0); PLATELET 101 x1000/uL (130-400); RED BLOOD CELL COUNT 3.66 mill/uL (4.2-5.4); RED CELL DISTRIBUTION WIDTH 16.9 % (11.6-14.6)
[2022-06-23 07:34] LABS: PHOSPHORUS 3.6 mg/dL (2.5-4.9)
[2022-06-23 08:00] VITALS: BP 168/75
[2022-06-23] MEDS ORDERED: CARISOPRODOL 350 MG TABLET PO PRN (08:00)
[2022-06-23] MEDS: FOLIC ACID 1MG TABLET PO SCH (08:27)
[2022-06-23] MEDS: ASPIRIN 81MG EC TABLET PO SCH (08:27)
[2022-06-23] MEDS: CLONIDINE 0.2MG TABLET PO SCH ×3 (08:28→17:34)
[2022-06-23] MEDS: FUROSEMIDE 20MG TABLET PO SCH (08:28)
[2022-06-23] MEDS ORDERED: ENOXAPARIN 30MG/0.3ML SYR SUBCUT SCH (09:00)
[2022-06-23] MEDS ORDERED: NON FORMULARY PATIENT HOME MED XX SCH (10:15)
[2022-06-23] MEDS: AZATHIOPRINE 50MG TABLET PO SCH ×2 (11:26→17:34)
[2022-06-23 12:00] VITALS: BP 111/72
[2022-06-23] MEDS: ISOSORB DINIT/HYDRALAZINE HCL 20/37.5MG TABLET PO SCH ×2 (14:02→21:44)
[2022-06-23 16:00] VITALS: BP 145/67
[2022-06-23] MEDS: APIXABAN 5 MG TABLET PO SCH (17:34)
[2022-06-23 20:00] VITALS: BP 115/55
[2022-06-23] MEDS ORDERED: ALPRAZOLAM 0.25 MG TABLET PO SCH (21:00)
[2022-06-23] MEDS: CARVEDILOL 3.125 MG TABLET PO SCH (21:44)
[2022-06-23] MEDS ORDERED: SACU1TAB4 PO (22:24)
[2022-06-23] MEDS ORDERED: HYDR-4134 PO (22:26)
[2022-06-24] VITALS: BP 133/65
[2022-06-24] MEDS: HYDROCODONE/ACETAMINOPHEN 10/325MG TABLET PO PRN ×2 (00:43→09:44)
[2022-06-24 04:00] VITALS: BP 128/51
[2022-06-24] MEDS: ISOSORB DINIT/HYDRALAZINE HCL 20/37.5MG TABLET PO SCH (05:38)
[2022-06-24 06:39] LABS: HEMATOCRIT. 28.8 % (36.0-48.0); HEMOGLOBIN. 9.1 g/dL (12.0-16.0); MEAN CORPUSCULAR HEMOGLOBIN 24.6 pg (28.0-32.0); MEAN CORPUSCULAR VOLUME 77.8 fL (81.0-99.0); MEAN PLATELET VOLUME 10.1 fl (7.4-10.4); PLATELET 101 x1000/uL (130-400); RED CELL DISTRIBUTION WIDTH 16.5 % (11.6-14.6)
[2022-06-24 08:00] VITALS: BP 140/52
[2022-06-24] MEDS: ASPIRIN 81MG EC TABLET PO SCH (09:44)
[2022-06-24] MEDS: CARVEDILOL 3.125 MG TABLET PO SCH (09:44)
[2022-06-24] MEDS: APIXABAN 5 MG TABLET PO SCH (09:44)
[2022-06-24] MEDS: AZATHIOPRINE 50MG TABLET PO SCH (09:44)
[2022-06-24] MEDS: FUROSEMIDE 20MG TABLET PO SCH (09:45)
[2022-06-24] MEDS: CLONIDINE 0.1MG TABLET PO PRN (09:45)
[2022-06-24] MEDS: FOLIC ACID 1MG TABLET PO SCH (09:45)
[2022-06-24] MEDS: CLONIDINE 0.2MG TABLET PO SCH (09:53)
[2022-06-24 10:24] VITALS: BP 122/52
[2022-06-24 12:00] VITALS: BP 122/52
[2022-06-24 12:32] LABS: PLATELET ESTIMATE DECREASED
== END 2022-06-24 12:50 | disposition home health service (06) | DRG 304 ==
LOC: ER 16:00 → EDBEDREQTM 19:16 → EDBEDREQ 19:16 → ENRESERV 19:57 → 7EST 21:22
PROVIDERS: ADMIT Family Medicine Adult Medicine; ATTEND Family Medicine Adult Medicine
PROC: 4B02XTZ Measurement of Cardiac Defibrillator, External Approach (ICD-10-PCS; principal; 2022-06-23)
DX: I16.0 Hypertensive urgency (principal); N17.0 Acute kidney failure with tubular necrosis; D61.818 Other pancytopenia; I13.0 Hypertensive heart and chronic kidney disease with heart failure and stage 1 through stage 4 chronic kidney disease, or unspecified chronic kidney disease; E78.5 Hyperlipidemia, unspecified; Z20.822 Contact with and (suspected) exposure to COVID-19; I25.10 Atherosclerotic heart disease of native coronary artery without angina pectoris; I25.5 Ischemic cardiomyopathy; I27.21 Secondary pulmonary arterial hypertension; I34.0 Nonrheumatic mitral (valve) insufficiency; D63.1 Anemia in chronic kidney disease; I50.9 Heart failure, unspecified; M32.9 Systemic lupus erythematosus, unspecified; M79.7 Fibromyalgia; J44.9 Chronic obstructive pulmonary disease, unspecified; N18.9 Chronic kidney disease, unspecified; I48.0 Paroxysmal atrial fibrillation; Z88.0 Allergy status to penicillin; Z90.49 Acquired absence of other specified parts of digestive tract; Z79.01 Long term (current) use of anticoagulants; Z90.710 Acquired absence of both cervix and uterus; Z95.5 Presence of coronary angioplasty implant and graft; Z95.810 Presence of automatic (implantable) cardiac defibrillator; R79.89 Other specified abnormal findings of blood chemistry; R07.89 Other chest pain
CPT/HCPCS: 36415; 71045; 80048; 80053; 80061; 82962; 83735; 83880; 84100; 84484; 85025; 93005; 93306; 99285; J1650; J7500

== ENCOUNTER 2022-11-07 14:31 | Inpatient (IN) | payer MEDICARE, MEDICAID ==
[~2022-11-07] VITALS: Ht 170.2 cm; Wt 95.3 kg
[~2022-11-07 14:31] MED LIST changes: +HYDR-4134 PO; -MECL-159 MT; -P20 PO; +SACU1TAB4 PO
[2022-11-07] MEDS ORDERED: MORPHINE SULFATE 4 MG/ML CPJ (NOT FOR IM USE) IV ONE ×2 (15:30→21:30)
[2022-11-07 15:43] LABS: BASOPHILS % 0.8 % (0.0-2.0); EOSINOPHILS % 2.2 % (0.0-5.0); HEMATOCRIT. 32.7 % (36.0-48.0); HEMOGLOBIN. 10.5 g/dL (12.0-16.0); LYMPHOCYTES % 29.2 % (20.0-50.0); MEAN CORPUSCULAR HEMOGLOBIN 24.9 pg (28.0-32.0); MEAN CORPUSCULAR VOLUME 77.5 fL (81.0-99.0); MEAN PLATELET VOLUME 10.4 fl (7.4-10.4); MONOCYTES % 8.9 % (2.0-8.0); NEUTROPHILS % 58.9 % (40.0-76.0); PLATELET 112 x1000/uL (130-400); RED BLOOD CELL COUNT 4.22 mill/uL (4.2-5.4); RED CELL DISTRIBUTION WIDTH 16.4 % (11.6-14.6)
[2022-11-07 15:48] LABS: CHLORIDE 112 mEq/L (98-107)
[2022-11-07 15:49] LABS: INR 0.9
[2022-11-07] MEDS ORDERED: ASPIRIN 325MG TABLET PO ONE (16:30)
[2022-11-07] MEDS ORDERED: FUROSEMIDE 20MG TABLET PO ONE (21:30)
[2022-11-07] MEDS ORDERED: CLONIDINE 0.2MG TABLET PO ONE (21:30)
[2022-11-07] MEDS ORDERED: HYDRALAZINE HCL 25MG TABLET PO ONE (21:30)
[2022-11-08] VITALS: BP 117/59
[2022-11-08] MEDS ORDERED: HYDROCODONE/ACETAMINOPHEN 5/325MG TABLET PO PRN (05:00)
[2022-11-08] MEDS ORDERED: IPRATROPIUM/ALBUTEROL 0.5-3(2.5)MG/3ML NEB HHN PRN (07:00)
[2022-11-08] MEDS ORDERED: LORAZEPAM 0.5MG TABLET PO PRN (07:00)
[2022-11-08] MEDS ORDERED: ONDANSETRON HCL 4MG/2ML INJ IV PRN (07:00)
[2022-11-08] MEDS ORDERED: DOCUSATE SODIUM 100MG CAPSULE PO PRN (07:00)
[2022-11-08] MEDS ORDERED: ACETAMINOPHEN 325MG TABLET PO PRN ×2 (07:00)
[2022-11-08] MEDS ORDERED: CLONIDINE 0.1MG TABLET PO PRN (07:00)
[2022-11-08] MEDS ORDERED: NALOXONE HCL 0.4MG/ML VIAL IV PRN (07:15)
[2022-11-08] MEDS: HYDROCODONE/ACETAMINOPHEN 5/325MG TABLET PO PRN (08:24)
[2022-11-08] MEDS ORDERED: NON FORMULARY PATIENT HOME MED XX SCH (13:15)
[2022-11-08] MEDS: ASPIRIN 81MG TABLET PO SCH (13:23)
[2022-11-08] MEDS ORDERED: HYDROCODONE/ACETAMINOPHEN 10/325MG TABLET PO PRN (16:30)
[2022-11-08] MEDS ORDERED: SACUBITRIL/VALSARTAN 49MG/51MG TABLET PO SCH (18:00)
[2022-11-08] MEDS ORDERED: SACUBITRIL/VALSARTAN 24MG/26MG TABLET PO SCH (18:00)
[2022-11-08 18:30] VITALS: BP 149/64
[2022-11-08 19:30] VITALS: BP_SYST 146; BP_DIAS 20; BP_DIAS 50
[2022-11-08] MEDS ORDERED: IPRATROPIUM BROMIDE (0.02%) 0.5MG/2.5ML NEB HHN PRN (20:00)
[2022-11-08] MEDS ORDERED: ALBUTEROL (0.083%) 2.5MG/3ML NEB HHN PRN (20:00)
[2022-11-08] MEDS ORDERED: ALPRAZOLAM 0.25 MG TABLET PO SCH (21:00)
[2022-11-08] MEDS: CARVEDILOL 3.125 MG TABLET PO SCH (21:09)
[2022-11-09] VITALS (7 sets, daily range): BP systolic 110–178; BP diastolic 59–84
[2022-11-09] MEDS: MORPHINE SULFATE 2 MG/ML CPJ (NOT FOR IM USE) IV PRN ×2 (02:06→10:33)
[2022-11-09 06:43] LABS: BASOPHILS % 0.3 % (0.0-2.0); EOSINOPHILS % 5.6 % (0.0-5.0); HEMATOCRIT. 33.1 % (36.0-48.0); HEMOGLOBIN. 10.7 g/dL (12.0-16.0); LYMPHOCYTES % 34.5 % (20.0-50.0); MEAN CORPUSCULAR HEMOGLOBIN 25.1 pg (28.0-32.0); MEAN CORPUSCULAR VOLUME 77.6 fL (81.0-99.0); MONOCYTES % 12.1 % (2.0-8.0); NEUTROPHILS % 47.5 % (40.0-76.0); PLATELET 113 x1000/uL (130-400); RED BLOOD CELL COUNT 4.26 mill/uL (4.2-5.4); RED CELL DISTRIBUTION WIDTH 16.1 % (11.6-14.6)
[2022-11-09] MEDS ORDERED: SODIUM POLYSTYRENE SULFONATE 15 G/60 ML BOT PO SCH (08:00)
[2022-11-09] MEDS ORDERED: FOLIC ACID 1MG TABLET PO SCH (09:00)
[2022-11-09] MEDS: ASPIRIN 81MG TABLET PO SCH (10:21)
[2022-11-09] MEDS: CARVEDILOL 3.125 MG TABLET PO SCH (10:21)
[2022-11-09] MEDS: SACUBITRIL/VALSARTAN 49MG/51MG TABLET PO SCH ×2 (10:22→16:54)
[2022-11-09] MEDS: SACUBITRIL/VALSARTAN 24MG/26MG TABLET PO SCH ×2 (10:22→16:53)
[2022-11-09] MEDS: MECLIZINE 12.5MG TABLET PO SCH ×2 (12:43→18:45)
[2022-11-09] MEDS: HYDROCODONE/ACETAMINOPHEN 5/325MG TABLET PO PRN (16:53)
== END 2022-11-09 18:15 | disposition home or self-care (01) | DRG 314 ==
LOC: ER 14:31 → 8WST 17:57 → EDBEDREQTM 18:07 → EDBEDREQ 18:07 → ENRESERV 11-08 17:17
PROVIDERS: ADMIT Family Medicine Adult Medicine; ATTEND Family Medicine Adult Medicine
PROC: 4B02XTZ Measurement of Cardiac Defibrillator, External Approach (ICD-10-PCS; principal; 2022-11-08)
DX: T82.897A Other specified complication of cardiac prosthetic devices, implants and grafts, initial encounter (principal); D61.811 Other drug-induced pancytopenia; I16.1 Hypertensive emergency; I25.10 Atherosclerotic heart disease of native coronary artery without angina pectoris; I27.21 Secondary pulmonary arterial hypertension; M47.9 Spondylosis, unspecified; M48.02 Spinal stenosis, cervical region; N18.9 Chronic kidney disease, unspecified; Z20.822 Contact with and (suspected) exposure to COVID-19; I25.5 Ischemic cardiomyopathy; I48.0 Paroxysmal atrial fibrillation; D69.6 Thrombocytopenia, unspecified; D50.9 Iron deficiency anemia, unspecified; R77.8 Other specified abnormalities of plasma proteins; E78.5 Hyperlipidemia, unspecified; J44.9 Chronic obstructive pulmonary disease, unspecified; M25.78 Osteophyte, vertebrae; M79.7 Fibromyalgia; Y84.8 Other medical procedures as the cause of abnormal reaction of the patient, or of later complication, without mention of misadventure at the time of the procedure; Z79.01 Long term (current) use of anticoagulants; Z90.710 Acquired absence of both cervix and uterus; Z95.0 Presence of cardiac pacemaker; Z95.5 Presence of coronary angioplasty implant and graft; Z88.0 Allergy status to penicillin; Z79.899 Other long term (current) drug therapy; Y92.89 Other specified places as the place of occurrence of the external cause; I13.10 Hypertensive heart and chronic kidney disease without heart failure, with stage 1 through stage 4 chronic kidney disease, or unspecified chronic kidney disease
CPT/HCPCS: 36415; 71045; 72170; 80048; 80053; 83735; 83880; 84132; 84484; 85025; 86850; 86870; 86900; 87426; 93005; 96374; 96376; 99285; J2270; J8597

== ENCOUNTER 2022-12-22 14:45 | Inpatient (IN) | payer MEDICARE, MEDICAID ==
[~2022-12-22] VITALS: Ht 170.2 cm; Wt 127.0 kg
[~2022-12-22 14:45] MED LIST changes: -SACU1TAB4 PO
[2022-12-22 17:06] LABS: INR 0.9
[2022-12-22 17:07] LABS: CHLORIDE 115 mEq/L (98-107)
[2022-12-22 17:09] LABS: BASOPHILS % 0.2 % (0.0-2.0); EOSINOPHILS % 4.8 % (0.0-5.0); HEMATOCRIT. 35.1 % (36.0-48.0); LYMPHOCYTES % 41.1 % (20.0-50.0); MEAN CORPUSCULAR HEMOGLOBIN 24.6 pg (28.0-32.0); MEAN CORPUSCULAR VOLUME 78.2 fL (81.0-99.0); MEAN PLATELET VOLUME 9.6 fl (7.4-10.4); MONOCYTES % 8.8 % (2.0-8.0); NEUTROPHILS % 45.1 % (40.0-76.0); PLATELET 111 x1000/uL (130-400); RED BLOOD CELL COUNT 4.49 mill/uL (4.2-5.4); RED CELL DISTRIBUTION WIDTH 17.2 % (11.6-14.6)
[2022-12-22 22:13] LABS: CLARITY URINE CLEAR (CLEAR); COLOR URINE YELLOW (YELLOW); KETONES URINE NEGATIVE (NEGATIVE); LEUKOCYTE ESTERASE URINE NEGATIVE (NEGATIVE); NITRITE URINE NEGATIVE (NEGATIVE); OCCULT BLOOD URINE NEGATIVE (NEGATIVE); PH URINE 6.5 (4.5-8.0); PROTEIN URINE 1+ (NEGATIVE); SPECIFIC GRAVITY URINE 1.011 (1.005-1.030); UROBILINOGEN URINE 0.2 E.U./dL (0.2-1.0)
[2022-12-23 08:00] VITALS: BP 164/85
[2022-12-23] MEDS ORDERED: AMLODIPINE 10MG TABLET PO SCH (09:00)
[2022-12-23] MEDS ORDERED: ACETAMINOPHEN 325MG TABLET PO PRN (09:00)
[2022-12-23] MEDS ORDERED: ONDANSETRON HCL 4MG/2ML INJ IV PRN (09:00)
[2022-12-23 09:30] VITALS: BP 164/85
[2022-12-23] MEDS ORDERED: SACU1TAB MT (10:25)
[2022-12-23] MEDS ORDERED: HYDR-4009 MT (10:25)
[2022-12-23] MEDS ORDERED: APIX2.5T MT (10:25)
[2022-12-23] MEDS ORDERED: AMLODIPINE 5MG TABLET PO NR (11:30)
[2022-12-23] MEDS ORDERED: NALOXONE HCL 0.4MG/ML VIAL IV PRN (11:30)
[2022-12-23] MEDS: HYDROCODONE/ACETAMINOPHEN 10/325MG TABLET PO PRN ×2 (11:53→21:01)
[2022-12-23 12:00] VITALS: BP 148/51
[2022-12-23] MEDS ORDERED: ENOXAPARIN 40MG/0.4ML SYR SUBCUT SCH (13:00)
[2022-12-23 16:00] VITALS: BP 143/53
[2022-12-23 20:00] VITALS: BP 150/67
[2022-12-23] MEDS: CARVEDILOL 6.25 MG TABLET PO SCH (21:01)
[2022-12-24] VITALS: BP 117/64
[2022-12-24] MEDS: DIPHENHYDRAMINE 50MG CAPSULE PO PRN (01:05)
[2022-12-24] MEDS: ALPRAZOLAM 0.5 MG TABLET PO PRN (01:06)
[2022-12-24 04:00] VITALS: BP_SYST 128; BP_SYST 162; BP_SYST 185; BP_DIAS 67; BP_DIAS 72; BP_DIAS 91
[2022-12-24] MEDS ORDERED: AMLODIPINE 5MG TABLET ONE (06:39)
[2022-12-24] MEDS: HYDROCODONE/ACETAMINOPHEN 10/325MG TABLET PO PRN ×3 (06:46→21:51)
[2022-12-24] MEDS: AMLODIPINE 5MG TABLET PO SCH (06:46)
[2022-12-24 07:30] LABS: BASOPHILS % 0.9 % (0.0-2.0); EOSINOPHILS % 6.7 % (0.0-5.0); HEMATOCRIT. 31.7 % (36.0-48.0); LYMPHOCYTES % 43.2 % (20.0-50.0); MEAN CORPUSCULAR HEMOGLOBIN 24.7 pg (28.0-32.0); MEAN CORPUSCULAR VOLUME 78.3 fL (81.0-99.0); MONOCYTES % 11.8 % (2.0-8.0); NEUTROPHILS % 37.4 % (40.0-76.0); PLATELET 92 x1000/uL (130-400); RED BLOOD CELL COUNT 4.05 mill/uL (4.2-5.4); RED CELL DISTRIBUTION WIDTH 16.8 % (11.6-14.6)
[2022-12-24 08:00] VITALS: BP 145/57
[2022-12-24] MEDS: CARVEDILOL 6.25 MG TABLET PO SCH ×2 (09:00→21:50)
[2022-12-24 12:00] VITALS: BP 111/66
[2022-12-24] MEDS: FOLIC ACID 1MG TABLET PO SCH (14:05)
[2022-12-24] MEDS: AZATHIOPRINE 50MG TABLET PO SCH ×2 (15:36→17:58)
[2022-12-24 20:00] VITALS: BP 125/44
[2022-12-25] VITALS (7 sets, daily range): BP systolic 123–163; BP diastolic 42–76
[2022-12-25] MEDS: ALPRAZOLAM 0.5 MG TABLET PO PRN (00:02)
[2022-12-25] MEDS: DIPHENHYDRAMINE 50MG CAPSULE PO PRN (01:11)
[2022-12-25] MEDS: HYDROCODONE/ACETAMINOPHEN 10/325MG TABLET PO PRN ×2 (06:21→17:11)
[2022-12-25] MEDS: CARVEDILOL 6.25 MG TABLET PO SCH ×2 (09:39→20:15)
[2022-12-25] MEDS: FOLIC ACID 1MG TABLET PO SCH (09:40)
[2022-12-25] MEDS: AZATHIOPRINE 50MG TABLET PO SCH ×2 (09:40→17:10)
[2022-12-25] MEDS: AMLODIPINE 5MG TABLET PO SCH (09:40)
[2022-12-25 10:42] LABS: EOSINOPHILS % 8.2 % (0.0-5.0); HEMOGLOBIN. 10.2 g/dL (12.0-16.0); LYMPHOCYTES % 46.5 % (20.0-50.0); MEAN CORPUSCULAR HEMOGLOBIN 24.3 pg (28.0-32.0); MEAN CORPUSCULAR VOLUME 78.7 fL (81.0-99.0); MEAN PLATELET VOLUME 11.5 fl (7.4-10.4); MONOCYTES % 10.8 % (2.0-8.0); NEUTROPHILS % 33.5 % (40.0-76.0); PLATELET 105 x1000/uL (130-400); RED BLOOD CELL COUNT 4.19 mill/uL (4.2-5.4); RED CELL DISTRIBUTION WIDTH 16.7 % (11.6-14.6)
[2022-12-25] MEDS ORDERED: MECLIZINE 12.5MG TABLET PO SCH (11:15)
[2022-12-25] MEDS ORDERED: NON FORMULARY PATIENT HOME MED XX SCH (11:15)
[2022-12-25] MEDS ORDERED: SACU1TAB4 PO (18:01)
[2022-12-25] MEDS ORDERED: CARV12.545 PO (18:02)
[2022-12-25] MEDS ORDERED: AMLO10TA80 PO (18:02)
[2022-12-25] MEDS ORDERED: EMPA10TA PO (18:03)
[2022-12-25] MEDS ORDERED: FURO40TA5 PO (18:04)
[2022-12-25] MEDS ORDERED: ALPR2TAB97 PO (18:04)
[2022-12-25] MEDS ORDERED: VERA240C3 PO (18:05)
[2022-12-26] MEDS ORDERED: ASPIRIN 81MG TABLET PO SCH (09:00)
== END 2022-12-25 20:20 | disposition home health service (06) | DRG 74 ==
LOC: ER 15:38 → 7EST 12-23 02:13
PROVIDERS: ADMIT Internal Medicine; ATTEND Internal Medicine
PROC: 4B02XTZ Measurement of Cardiac Defibrillator, External Approach (ICD-10-PCS; principal; 2022-12-24)
DX: G90.8 Other disorders of autonomic nervous system (principal); D61.818 Other pancytopenia; N17.9 Acute kidney failure, unspecified; I50.22 Chronic systolic (congestive) heart failure; I48.0 Paroxysmal atrial fibrillation; I27.20 Pulmonary hypertension, unspecified; D72.819 Decreased white blood cell count, unspecified; D50.9 Iron deficiency anemia, unspecified; I25.10 Atherosclerotic heart disease of native coronary artery without angina pectoris; M32.9 Systemic lupus erythematosus, unspecified; M54.50 Low back pain, unspecified; M79.7 Fibromyalgia; G62.9 Polyneuropathy, unspecified; I11.0 Hypertensive heart disease with heart failure; I25.5 Ischemic cardiomyopathy; I27.21 Secondary pulmonary arterial hypertension; Z90.710 Acquired absence of both cervix and uterus; Z95.5 Presence of coronary angioplasty implant and graft; Z95.810 Presence of automatic (implantable) cardiac defibrillator; I25.2 Old myocardial infarction; Z88.0 Allergy status to penicillin; Z79.899 Other long term (current) drug therapy; Z79.82 Long term (current) use of aspirin; Z79.01 Long term (current) use of anticoagulants; Z82.3 Family history of stroke
CPT/HCPCS: 36415; 71045; 80048; 80053; 81003; 83735; 84484; 85025; 93005; 93306; 93970; 99285; C1893; J1650; J7500; J8597; Q0163